=== PATIENT | male | born 1995 | race Caucasian/White ===

== ENCOUNTER 2021-07-25 18:48 | Emergency (ER) | payer SELFPAY ==
[~2021-07-25] VITALS: Ht 180.3 cm; Wt 90.7 kg
--- NOTE | 2021-07-25 18:51 | NUR ---
BIB [facility] 85 FOR "MAKING A BOWEL MOVEMENT" INFRONT OF A PERSONS HOUSE AND BEING UNABLE TO ASNWER QUESTIONS APPROPRIATELY. WHEN I ASKED HIM HIS NAME, HE STATED "BITCH BITCH BITCH".
[2021-07-25] MEDS ORDERED: OLANZAPINE 10 MG VIAL IM ONE ×2 (19:45→19:57)
[2021-07-25] MEDS ORDERED: LORAZEPAM 2 MG/1 ML VIAL IV ONE (23:15)
[2021-07-25] MEDS ORDERED: LORAZEPAM 2 MG/1 ML VIAL ONE (23:19)
[2021-07-25] MEDS ORDERED: diphenhydrAMINE 50 MG/1 ML VIAL IV ONE (23:30)
[2021-07-25] MEDS ORDERED: HALOPERIDOL LACTATE 5 MG/1 ML VIAL IV ONE (23:30)
[2021-07-26 01:03] LABS: HEMATOCRIT 37.1 % (36.7-47.1); MEAN CORPUSCULAR HEMOGLOBIN 29.4 uug (23.8-33.4); MEAN CORPUSCULAR VOLUME 86.7 fL (73.0-96.2); PLATELET COUNT (AUTO) 215 K/uL (152-348)
[2021-07-26 01:15] LABS: CARBON DIOXIDE 29 mmol/L (21-32); CHLORIDE 108 mmol/L (98-107); CREATININE 0.8 mg/dL (0.6-1.3); GLUCOSE 86 mg/dL (74-106); POTASSIUM 3.5 mmol/L (3.5-5.1); UREA NITROGEN, BLOOD 10 mg/dL (7-18)
[2021-07-26 01:17] LABS: ETHANOL < 3 MG/DL (0-0)
[2021-07-26 01:21] LABS: ACETAMINOPHEN < 2.0 ug/mL (10-30); ALANINE AMINOTRANSFERASE 28 U/L (16-63); ALKALINE PHOSPHATASE 93 U/L (50-136); ASPARTATE AMINOTRANSFERASE 33 U/L (15-37); BILIRUBIN,DIRECT 0.1 mg/dL (0.0-0.2); BILIRUBIN,TOTAL 0.4 mg/dL (0.2-1.0); TOTAL PROTEIN, SERUM 6.6 g/dL (6.4-8.2)
[2021-07-26 01:57] LABS: THYROID STIMULATING HORMONE 1.407 mIU/mL (0.358-3.740)
--- NOTE | 2021-07-26 03:22 | NUR ---
Urine sample sent to lab.
[2021-07-26 04:24] LABS: *AMPHETAMINE, URINE NEGATIVE (NEGATIVE); *CANNABINOID, URINE NEGATIVE (NEGATIVE); *COCCAINE, URINE NEGATIVE (NEGATIVE); *OPIATE, URINE NEGATIVE (NEGATIVE); *PHENCYCLIDINE SCREEN,URINE NEGATIVE (NEGATIVE)
--- NOTE | 2021-07-26 08:30 | NUR ---
pt finfished the break fast tray with apetite.
--- NOTE | 2021-07-26 08:57 | NUR ---
Patient given written and verbal discharge instructions. Patient verbalizes understanding of instructions. Patient is ambulatory with steady gait. Refuses offer of skilled nursing placement. Patient given list of available shelters in surrounding area. pt walks in steady gait, [id number].
[2021-07-26 09:02] VITALS: BP 121/77
== END 2021-07-26 09:03 | disposition home or self-care (01) ==
LOC: ER 18:50
DX: F15.159 Other stimulant abuse with stimulant-induced psychotic disorder, unspecified (principal); Z20.822 Contact with and (suspected) exposure to COVID-19; Z83.3 Family history of diabetes mellitus; Z82.49 Family history of ischemic heart disease and other diseases of the circulatory system; R00.1 Bradycardia, unspecified
CPT/HCPCS: 36415; 80048; 80076; 80299; 80307; 80320; 84443; 85025; 87426; 93005; 96372 ×2; 99284; J2060; A4663; C1758; G0480; J2358